=== PATIENT | female | born 1985 | race Two or more races ===

== ENCOUNTER 2021-06-25 15:49 | Emergency (ER) | payer OTHER ==
[~2021-06-25] VITALS: Ht 154.9 cm; Wt 57.6 kg
[2021-06-25] MEDS ORDERED: TENCON 50-3251 EACH PO (21:42)
[2021-06-25] MEDS ORDERED: ZITHROMAX500 MG PO (21:43)
== END 2021-06-25 22:40 ==
LOC: ER 15:49
DX: G44.209 Tension-type headache, unspecified, not intractable (principal); A49.3 Mycoplasma infection, unspecified site; Z20.822 Contact with and (suspected) exposure to COVID-19